=== PATIENT | female | born 1980 | race Caucasian/White ===

== ENCOUNTER → 2018-03-18 | Outpatient (CLI) | payer OTHER ==
[~2018-03-18] MED LIST: ALDACTONE50 MG PO; PREDNISONE20 MG PO; TUSS PO; VENTOLIN0.09 MG IH; ZOLOFT 100MG100 MG PO
== END ==
LOC: COL.RAD 03-17 09:30
DX: M25.552 Pain in left hip (principal)
CPT/HCPCS: G0260; J3301